=== PATIENT | male | born 1995 | race Caucasian/White ===

== ENCOUNTER 2016-11-16 22:44 | Emergency (ER) | payer OTHER ==
[2016-11-17 00:44] VITALS: BP 138/73
== END 2016-11-17 01:00 | disposition home or self-care (01) ==
LOC: EDBD 22:44 → M ED 23:59
DX: S31.21XA Laceration without foreign body of penis, initial encounter (principal); V23.4XXA Motorcycle driver injured in collision with car, pick-up truck or van in traffic accident, initial encounter; Y92.410 Unspecified street and highway as the place of occurrence of the external cause; Y93.89 Activity, other specified; Y99.9 Unspecified external cause status; F17.200 Nicotine dependence, unspecified, uncomplicated

== ENCOUNTER 2019-01-28 18:00 | Emergency (ER) | payer OTHER ==
[~2019-01-28] VITALS: Ht 175.3 cm; Wt 77.6 kg
--- NOTE | 2019-01-28 18:47 | REP ---
Clinical: Trauma. Technique: Three views of the left shoulder. Findings: Anteroinferior glenohumeral joint dislocation is appreciated. No acute fracture identified. Acromioclavicular joint is normal. Surrounding soft tissues are unremarkable. Impression: Anteroinferior glenohumeral joint dislocation. Electronically Signed by Lamonte Dawson MD 01/28/2019 06:39 P
[2019-01-28] MEDS ORDERED: LORazepam 2 MG/ML VIAL (J2060) IV STA (18:48)
[2019-01-28] MEDS ORDERED: MORPHINE 4 MG/ML 1ML VIAL/SYRINGE (J2270) IV ONE (19:00)
[2019-01-28 20:32] VITALS: BP 129/59
--- NOTE | 2019-01-28 20:48 | REP ---
Clinical: Status post reduction. Technique: Single neutral view of the left shoulder. Findings: Satisfactory glenohumeral joint reduction. No acute fracture. Impression: Satisfactory reduction. Electronically Signed by Lamonte Dawson MD 01/28/2019 08:38 P
== END 2019-01-28 20:35 | disposition home or self-care (01) ==
LOC: M ED 18:00
DX: S43.005A Unspecified dislocation of left shoulder joint, initial encounter (principal); X58.XXXA Exposure to other specified factors, initial encounter; Y92.018 Other place in single-family (private) house as the place of occurrence of the external cause
CPT/HCPCS: 23650; 73020; 73030; 96374; 96375; 99284; J2060; J2270